=== PATIENT | female | born 1990 | race African-American/Black ===

== ENCOUNTER 2020-09-17 07:32 | Emergency (ER) | payer OTHER ==
[~2020-09-17] VITALS: Ht 162.6 cm; Wt 136.1 kg
[2020-09-17 08:36] VITALS: BP 5/4
== END 2020-09-17 08:56 | disposition home or self-care (01) ==
LOC: FSED 08:12
DX: S80.01XA Contusion of right knee, initial encounter (principal); S60.221A Contusion of right hand, initial encounter; W01.0XXA Fall on same level from slipping, tripping and stumbling without subsequent striking against object, initial encounter; Y93.01 Activity, walking, marching and hiking; Y92.008 Other place in unspecified non-institutional (private) residence as the place of occurrence of the external cause; F31.9 Bipolar disorder, unspecified
CPT/HCPCS: 99283